=== PATIENT | female | born 1980 | race American Indian/Alaskan Native ===

== ENCOUNTER 2016-07-11 19:23 | Emergency (ER) | payer MEDICAID ==
[2016-07-11] MEDS ORDERED: CATAPRES PO ONE (20:24)
[2016-07-11] MEDS ORDERED: NACL 0.9% 1000 ML 1,000 ML IV ONE (23:26)
[2016-07-11] MEDS ORDERED: TORADOL IV ONE (23:26)
[2016-07-11] MEDS ORDERED: BENADRYL IV ONE (23:26)
[2016-07-11] MEDS ORDERED: REGLAN IV ONE (23:26)
[2016-07-11 23:30] VITALS: BP 142/98
[2016-07-11] MEDS ORDERED: TYLENOL #3 PO ONE (23:30)
--- NOTE | 2016-07-11 23:31 | Emergency Department Report ---
ED Headache HPI - General Chief Complaint: Upper Respiratory Infection Stated Complaint: DOUBLE VISION/DIZZINESS/COUGH Time Seen by Provider: 07/11/16 23:27 Source: patient Exam Limitations: no limitations - History of Present Illness Initial Comments: Patient reports a productive cough with a headache that started 2 weeks ago. She also reports dizziness and double vision that started this morning after coughing. She reports she has a history hypertension, asthma and migraine. She reports this headache similarity as previous headaches. She denies sick contact, head trauma, nausea/vomiting, neck stiffness, fever or closed spaces. Timing/Duration: other (2 weeks) Quality: severe Head Injury Location: global Recent Head Trauma: no recent headache/trauma, chronic headaches Modifying Factors: worse with: exposure to light, movement, other (coughing) Associated Symptoms: denies symptoms. denies: confusion, fatigue, facial pain, fever/chills, flushing, loss of consciousness, nausea/vomiting, nasal congestion , nasal drainage, numbness in legs/feet, rash, seizures, sinus infection, stiff neck, vision changes, weakness Allergies/Adverse Reactions: Allergies aspirin Allergy (Verified 07/11/16 20:15) Anaphylaxis Penicillins Allergy (Verified 07/11/16 20:15) Rash Home Medications: Ambulatory Orders HYDROcodone/APAP 5-325 [[place] 5-325 mg TAB] 1 each PO Q6HR PRN #12 tablet Sulfamethoxazole/Trimethoprim [Bactrim DS TAB] 1 each PO Q12H #14 tablet Benzonatate [Tessalon Perles] 100 mg PO Q8HR #12 capsule 07/11/16 Cetirizine HCl [ZyrTEC] 10 mg PO DAILY #30 capsule 07/11/16 Ibuprofen [Motrin 800 MG tab] 800 mg PO Q8HR PRN #30 tablet 07/11/16 ED Review of Systems ROS: Stated complaint: DOUBLE VISION/DIZZINESS/COUGH Other details as noted in HPI Constitutional: denies: chills, diaphoresis, fever, malaise, weakness Eyes: vision change (photophobia). denies: eye pain, eye discharge ENT: denies: ear pain, throat pain, dental pain, hearing loss, epistaxis, congestion Respiratory: cough (productive). denies: orthopnea, shortness of breath, SOB with exertion, SOB at rest, stridor, wheezing Cardiovascular: denies: chest pain, palpitations, dyspnea on exertion, orthopnea , edema, syncope, paroxysmal nocturnal dyspnea Gastrointestinal: denies: abdominal pain, nausea, vomiting, diarrhea, constipation Musculoskeletal: denies: back pain, joint swelling, arthralgia, myalgia Skin: denies: rash, lesions, change in color, change in hair/nails, pruritus Neurological: headache (global). denies: weakness, numbness, paresthesias, confusion, abnormal gait, vertigo Psychiatric: denies: anxiety, depression Hematological/Lymphatic: denies: easy bleeding, easy bruising, swollen glands ED Past Medical Hx - Past Medical History Hx Hypertension: Yes Hx Asthma: Yes - Surgical History Hx Cholecystectomy: Yes - Social History Smoking Status: Never Smoker - Medications Home Medications: Home Medications Medication Instructions Recorded Confirmed Last Taken Type HYDROcodone/APAP 5-325 [[place] 1 each PO Q6HR PRN #12 tablet 03/20/15 11/25/15 Unknown Rx 5-325 mg TAB] Sulfamethoxazole/Trimethoprim 1 each PO Q12H #14 tablet 03/20/15 11/25/15 Unknown Rx [Bactrim DS TAB] Benzonatate [Tessalon Perles] 100 mg PO Q8HR #12 capsule 07/11/16 Unknown Rx Cetirizine HCl [ZyrTEC] 10 mg PO DAILY #30 capsule 07/11/16 Unknown Rx Ibuprofen [Motrin 800 MG tab] 800 mg PO Q8HR PRN #30 tablet 07/11/16 Unknown Rx ED Physical Exam - General Limitations: No Limitations General appearance: alert, in no apparent distress - Head Head exam: Present: atraumatic, normocephalic - Eye Eye exam: Present: normal appearance, PERRL, EOMI. Absent: nystagmus Pupils: Present: normal accommodation. Absent: irregular, unequal - ENT ENT exam: Present: normal orophraynx, mucous membranes moist, TM's normal bilaterally, normal external ear exam, other (swelling to bilateral turbinates) . Absent: mucous membranes dry - Neck Neck exam: Present: normal inspection, full ROM. Absent: tenderness, meningismus, lymphadenopathy, thyromegaly - Respiratory Respiratory exam: Present: normal lung sounds bilaterally. Absent: respiratory distress, wheezes, rales, rhonchi, stridor, chest wall tenderness, accessory muscle use, decreased breath sounds, prolonged expiratory - Cardiovascular Cardiovascular Exam: Present: regular rate, normal rhythm, normal heart sounds. Absent: systolic murmur, diastolic murmur, rubs, gallop, clicks, JVD, S3, S4 - GI/Abdominal GI/Abdominal exam: Present: soft, normal bowel sounds. Absent: distended, tenderness, guarding, rebound, rigid - Extremities Exam Extremities exam: Present: normal inspection, full ROM, normal capillary refill. Absent: tenderness, pedal edema, joint swelling, calf tenderness - Back Exam Back exam: Present: normal inspection, full ROM. Absent: CVA tenderness (R), CVA tenderness (L) - Neurological Exam Neurological exam: Present: alert, oriented X3, CN II-XII intact, normal gait, reflexes normal, other (no focal neuro deficits noted). Absent: motor sensory deficit - Psychiatric Psychiatric exam: Present: normal affect, normal mood. Absent: depressed, agitated - Skin Skin exam: Present: warm, dry, intact, normal color. Absent: rash ED Course Vital Signs 07/11/16 07/11/16 07/11/16 20:15 20:28 23:29 Temperature 99.1 F Pulse Rate 73 73 77 Respiratory 18 19 Rate Blood Pressure 156/131 Blood Pressure 156/131 142/98 [Left] O2 Sat by Pulse 100 98 Oximetry - Reevaluation(s) Reevaluation #1: 07/11/16 23:31 antihypertensive medication, pain medication with codeine, antihistamine, Intravenous fluids and Reglan Reevaluation #2: 07/11/16 23:37 radiology studies ordered ED Medical Decision Making - Lab Data Vital Signs 07/11/16 07/11/16 07/11/16 20:15 20:28 23:29 Temperature 99.1 F Pulse Rate 73 73 77 Respiratory 18 19 Rate Blood Pressure 156/131 Blood Pressure 156/131 142/98 [Left] O2 Sat by Pulse 100 98 Oximetry - Radiology Data Radiology results: image reviewed PROCEDURE: XR CHEST ROUTINE TWO VIEW PA AND LATERAL TECHNIQUE: PA and lateral chest radiographs were obtained. CPT 28453 A total of 3 films obtained which are 1 PA view and 2 lateral views HISTORY: productive cough COMPARISON: No prior studies are available for comparison. FINDINGS: Heart: Normal. Mediastinum/Vessels: Normal. Lungs/Pleural space: Normal. Bony thorax: No acute osseous abnormality. Other: IMPRESSION: Negative PA and lateral chest with no plain film evidence of acute finding.. - Medical Decision Making During the course of ED, antihypertensive medication, antihistamein, intravenous fluids, antiemetic, analgesic and radiology studies were ordered. The imaging study revealed Negative PA and lateral chest with no plain film evidence of acute finding. She reports symptomatic relief from medications given in the ED. She was sent home with prescriptions for Ibuprofen, Zyrtec and Tesalon Perles, instructed to follow up with the selective referral given at discharge, she verbalized understanding - Differential Diagnosis Migraine Headache, Upper Respiratory Infection Critical care attestation.: If time is entered above; I have spent that time in minutes in the direct care of this critically ill patient, excluding procedure time. ED Disposition Clinical Impression: Migraine headache Qualifiers: Migraine type: without aura Status migrainosus presence: without status migrainosus Intractability: not intractable Qualified Code(s): G43.009 - Migraine without aura, not intractable, without status migrainosus Upper respiratory infection Qualifiers: URI type: unspecified URI Qualified Code(s): J06.9 - Acute upper respiratory infection, unspecified Disposition: DISCHARGED TO HOME OR SELFCARE Is pt being admited?: No Does the pt Need Aspirin: No Condition: Stable Instructions: Migraine Headache (ED), Upper Respiratory Infection (ED) Additional Instructions: Take medication as directed. Follow up with your primary care doctor. Return back to the ED for worsening symptoms or concerns Prescriptions: Ibuprofen [Motrin 800 MG tab] 800 mg PO Q8HR PRN #30 tablet PRN Reason: Pain Benzonatate [Tessalon Perles] 100 mg PO Q8HR #12 capsule Cetirizine HCl [ZyrTEC] 10 mg PO DAILY #30 capsule Referrals: PRIMARY CARE, [Primary Care Provider] - 3-5 Days [facility] [Outside] - 3-5 Days Forms: Work/School Release Form(ED)
--- NOTE | 2016-07-12 00:41 | XRay Report ---
FINAL REPORT PROCEDURE: XR CHEST ROUTINE TWO VIEW PA AND LATERAL TECHNIQUE: PA and lateral chest radiographs were obtained. CPT 85578 A total of 3 films obtained which are 1 PA view and 2 lateral views HISTORY: productive cough COMPARISON: No prior studies are available for comparison. FINDINGS: Heart: Normal. Mediastinum/Vessels: Normal. Lungs/Pleural space: Normal. Bony thorax: No acute osseous abnormality. Other: IMPRESSION: Negative PA and lateral chest with no plain film evidence of acute finding..
== END 2016-07-12 01:37 | disposition home or self-care (01) ==
LOC: ED 19:23
DX: G43.909 Migraine, unspecified, not intractable, without status migrainosus (principal); J06.9 Acute upper respiratory infection, unspecified; I10 Essential (primary) hypertension; J45.909 Unspecified asthma, uncomplicated; Z88.6 Allergy status to analgesic agent; Z88.0 Allergy status to penicillin
CPT/HCPCS: 71020; 96361; 96374; 96375; 99283; J1200; J2765; J7030

== ENCOUNTER 2017-07-03 12:44 | Emergency (ER) | payer MEDICAID ==
[2017-07-03] MEDS ORDERED: DUONEB *Not for PRN Use IH ONE (13:00)
[2017-07-03 13:45] LABS: Bilirubin,Urine NEG (Negative); Blood,Urine NEG (Negative); Color,Urine Amber (Yellow); Mucus,Urine FEW /HPF; Nitrite,Urine NEG (Negative); Protein,Urine <15 mg/dL mg/dL (Negative); Urobilinogen,Urine < 2.0 mg/dL (<2.0); WBC,Urine < 1.0 /HPF (0.0-6.0)
[2017-07-03 13:55] LABS: HCG Qualitative,Urine Negative (Negative)
[2017-07-03 15:21] LABS: BUN/Creatinine Ratio 22; Blood Urea Nitrogen 11 mg/dL (7-17); Calcium 8.6 mg/dL (8.4-10.2); Hemolysis Index 5
[2017-07-03 15:22] LABS: Hematocrit 38.4 % (30.3-42.9); Hemoglobin 12.4 gm/dl (10.1-14.3); Mean Corpuscular HGB Conc 32 % (30-34); Mean Corpuscular Hemoglobin 27 pg (28-32); Mean Corpuscular Volume 82 fl (79-97); Platelet Count 256 K/mm3 (140-440); Red Cell Distribution Width 15.7 % (13.2-15.2)
--- NOTE | 2017-07-03 15:43 | XRay Report ---
ROUTINE CHEST, TWO VIEWS: HISTORY: Short of breath. The trachea, heart, mediastinal contour, lung andrade and bony thorax are unremarkable. IMPRESSION: Unremarkable chest x-ray.
[2017-07-03] MEDS ORDERED: NORCO 5/325 PO ONE (17:09)
[2017-07-03 17:11] VITALS: BP 139/91
--- NOTE | 2017-07-03 18:41 | Emergency Department Report ---
Minor Respiratory - HPI Chief Complaint: Upper Respiratory Infection Stated Complaint: CHEST PAIN, HEADACHE, COUGH Time Seen by Provider: 07/03/17 16:54 Duration: patient has been ill for approximately 3 weeks Pain Location: Chest (pleuritic chest pain as well as chest tightness) Severity: moderate Minor Respiratory: Yes Cough, Yes Chest Pain, Yes Shortness of Breath, No Rhinorrhea, No Sore Throat, No Able to Tolerate Fluids, No Ear Pain, No Sick Contacts, No Hemoptysis, No Fever Other History: Patient is a 36-year-old female who is presenting with chest discomfort as well as a cough. Patient states the cough is productive of clear sputum. Patient has been on amoxicillin for 10 days with no improvement of her symptoms. Patient went back to see her primary physician today and was sent here for evaluation. She denies fever nausea vomiting diarrhea body aches. ED Review of Systems ROS: Stated complaint: CHEST PAIN, HEADACHE, COUGH Other details as noted in HPI Comment: All other systems reviewed and negative ED Past Medical Hx - Past Medical History Hx Hypertension: Yes Hx Asthma: Yes - Surgical History Hx Cholecystectomy: Yes - Social History Smoking Status: Never Smoker Substance Use Type: None - Medications Home Medications: Home Medications Medication Instructions Recorded Confirmed Last Taken Type HYDROcodone/APAP 5-325 [[place] 1 each PO Q6HR PRN #12 tablet 03/20/15 11/25/15 Unknown Rx 5-325 mg TAB] Sulfamethoxazole/Trimethoprim 1 each PO Q12H #14 tablet 03/20/15 11/25/15 Unknown Rx [Bactrim DS TAB] Benzonatate [Tessalon Perles] 100 mg PO Q8HR #12 capsule 07/11/16 Unknown Rx Cetirizine HCl [ZyrTEC] 10 mg PO DAILY #30 capsule 07/11/16 Unknown Rx Ibuprofen [Motrin 800 MG tab] 800 mg PO Q8HR PRN #30 tablet 07/11/16 Unknown Rx Azithromycin [Zithromax Z-LOUISA] 250 mg PO DAILY #6 tablet 07/03/17 Unknown Rx HYDROcodone/APAP 5-325 [[place] 1 each PO Q4HR PRN #12 tablet 07/03/17 Unknown Rx 5/325] predniSONE [Deltasone] 20 mg PO QDAY #5 tab 07/03/17 Unknown Rx Minor Respiratory Exam - Exam General: Vital signs noted. No distress. Alert and acting appropriately. HEENT: Yes Moist Mucous Membranes, No Pharyngeal Erythema, No Pharyngeal Exudates, No Rhinorrhea, No Conjuctival Injection, No Frontal Tenderness, No Maxillary Tenderness Ear: Neither TM Bulge, Neither TM Erythema, Neither EAC Pain, Neither EAC Discharge Neck: Yes Supple, No Adenopathy Lungs: Yes Good Air Exchange, No Wheezes, No Ronchi, No Stridor, No Cough, No Labored Respirations, No Retractions, No Use of Accessory Muscles, No Other Abnormal Lung Sounds Heart: Yes Regular, No Murmur Abdomen: Yes Normal Bowel Sounds, No Tenderness, No Peritoneal Signs Skin: No Rash, No Edema Neurologic: Alert and oriented, no deficits. Musculoskeletal: Unremarkable. ED Course Vital Signs 07/03/17 07/03/17 12:56 17:10 Temperature 99.1 F Pulse Rate 84 72 Respiratory 18 16 Rate Blood Pressure 158/88 Blood Pressure 139/91 [Left] O2 Sat by Pulse 98 96 Oximetry ED Medical Decision Making - Lab Data Result diagrams: 07/03/17 14:52 07/03/17 14:52 Lab Results 07/03/17 07/03/17 07/03/17 Range/Units 13:30 14:52 14:52 WBC 9.9 (4.5-11.0) K/mm3 RBC 4.70 (3.65-5.03) M/mm3 Hgb 12.4 (10.1-14.3) gm/dl Hct 38.4 (30.3-42.9) % MCV 82 (79-97) fl MCH 27 L (28-32) pg MCHC 32 (30-34) % RDW 15.7 H (13.2-15.2) % Plt Count 256 (140-440) K/mm3 D-Dimer (0-234) ng/mlDDU Potassium 3.9 (3.6-5.0) mmol/L Chloride 99.4 (98-107) mmol/L Carbon Dioxide 24 (22-30) mmol/L Anion Gap 19 mmol/L BUN 11 (7-17) mg/dL Creatinine 0.5 L (0.7-1.2) mg/dL Estimated GFR > 60 ml/min BUN/Creatinine Ratio 22 % Glucose 104 H (65-100) mg/dL Calcium 8.6 (8.4-10.2) mg/dL Troponin T < 0.010 (0.00-0.029) ng/mL Urine Color Marcela (Yellow) Urine Turbidity Slightly-cloudy (Clear) Urine pH 7.0 (5.0-7.0) Ur Specific [place] 1.026 (1.003-1.030) Urine Protein <15 mg/dl (Negative) mg/dL Urine Glucose (UA) Neg (Negative) mg/dL Urine Ketones Neg (Negative) mg/dL Urine Blood Neg (Negative) Urine Nitrite Neg (Negative) Urine Bilirubin Neg (Negative) Urine Urobilinogen < 2.0 (<2.0) mg/dL Ur Leukocyte Esterase Neg (Negative) Urine WBC (Auto) < 1.0 (0.0-6.0) /HPF Urine RBC (Auto) 1.0 (0.0-6.0) /HPF U Epithel Cells (Auto) 2.0 (0-13.0) /HPF Urine Mucus Few /HPF Urine HCG, Qual Negative (Negative) 07/03/17 Range/Units 17:30 WBC (4.5-11.0) K/mm3 RBC (3.65-5.03) M/mm3 Hgb (10.1-14.3) gm/dl Hct (30.3-42.9) % MCV (79-97) fl MCH (28-32) pg MCHC (30-34) % RDW (13.2-15.2) % Plt Count (140-440) K/mm3 D-Dimer < 135 (0-234) ng/mlDDU Potassium (3.6-5.0) mmol/L Chloride (98-107) mmol/L Carbon Dioxide (22-30) mmol/L Anion Gap mmol/L BUN (7-17) mg/dL Creatinine (0.7-1.2) mg/dL Estimated GFR ml/min BUN/Creatinine Ratio % Glucose (65-100) mg/dL Calcium (8.4-10.2) mg/dL Troponin T (0.00-0.029) ng/mL Urine Color (Yellow) Urine Turbidity (Clear) Urine pH (5.0-7.0) Ur Specific [place] (1.003-1.030) Urine Protein (Negative) mg/dL Urine Glucose (UA) (Negative) mg/dL Urine Ketones (Negative) mg/dL Urine Blood (Negative) Urine Nitrite (Negative) Urine Bilirubin (Negative) Urine Urobilinogen (<2.0) mg/dL Ur Leukocyte Esterase (Negative) Urine WBC (Auto) (0.0-6.0) /HPF Urine RBC (Auto) (0.0-6.0) /HPF U Epithel Cells (Auto) (0-13.0) /HPF Urine Mucus /HPF Urine HCG, Qual (Negative) - EKG Data -: EKG Interpreted by Me EKG shows normal: sinus rhythm, axis, intervals, QRS complexes, ST-T waves Rate: normal - EKG Data Interpretation: normal EKG - Radiology Data Radiology results: report reviewed Acute process - Medical Decision Making Patient is a 36-year-old female presented with cough, congestion. Because of the duration of the patient's symptoms d-dimer was added to her lab work to assure that a PE had not been missed. D-dimer was negative patient be discharged home with pain meds as well as a second course of antibiotics. I have elected to place patient on azithromycin. Critical care attestation.: If time is entered above; I have spent that time in minutes in the direct care of this critically ill patient, excluding procedure time. ED Disposition Clinical Impression: Costochondral chest pain Acute bronchitis Qualifiers: Bronchitis organism: unspecified organism Qualified Code(s): J20.9 - Acute bronchitis, unspecified Disposition: DC-01 TO HOME OR SELFCARE Is pt being admited?: No Does the pt Need Aspirin: No Condition: Fair Instructions: Acute Bronchitis (ED), Chest Pain (ED), Costochondritis (ED) Prescriptions: Azithromycin [Zithromax Z-LOUISA] 250 mg PO DAILY #6 tablet HYDROcodone/APAP 5-325 [[place] 5/325] 1 each PO Q4HR PRN #12 tablet PRN Reason: Pain predniSONE [Deltasone] 20 mg PO QDAY #5 tab
== END 2017-07-03 19:00 | disposition home or self-care (01) ==
LOC: ED 12:44
DX: J20.9 Acute bronchitis, unspecified (principal); I10 Essential (primary) hypertension; J45.909 Unspecified asthma, uncomplicated; Z90.49 Acquired absence of other specified parts of digestive tract; Z88.0 Allergy status to penicillin; Z88.6 Allergy status to analgesic agent
CPT/HCPCS: 36415; 71046; 80048; 81001; 81025; 84484; 85027; 85379; 93005; 93010; 94640

== ENCOUNTER 2018-08-16 20:20 | Emergency (ER) | payer MEDICAID ==
[2018-08-16] MEDS ORDERED: DUONEB *Not for PRN Use IH ONE ×2 (20:34→21:13)
[2018-08-16] MEDS ORDERED: TYLENOL PO ONE (20:37)
[2018-08-16] MEDS ORDERED: TYLENOL ONE (20:41)
--- NOTE | 2018-08-16 21:08 | XRay Report ---
FINAL REPORT EXAM: XR CHEST ROUTINE 2V HISTORY: cough and wheezing TECHNIQUE: 2 views of the chest. PRIORS: 07/11/2016 FINDINGS: The cardiomediastinal silhouette appears normal. The lungs are clear. The bones and soft tissues are unremarkable. IMPRESSION: No evidence of acute cardiopulmonary disease
--- NOTE | 2018-08-16 23:30 | Emergency Department Report ---
- General Chief Complaint: Upper Respiratory Infection Stated Complaint: CHEST PAIN/SOB/COUGH Time Seen by Provider: 08/16/18 23:25 Source: patient Mode of arrival: Ambulatory Limitations: No Limitations - History of Present Illness Initial Comments: 37-year-old -[place] female presents to the emergency room stating she has chest pain with cough and shortness of breathing. Patient reports that she saw her primary care provider yesterday and was diagnosed with bronchitis and placed on pro-air and amoxicillin. Patient reports that she is allergic to amoxicillin and feels that she is not getting any better. Patient received a treatment in triage and reports that she feels much better after having the treatment. Patient denies any fever or chills or nausea no vomiting. MD Complaint: cough Improves With: other (nebulizer) Associated Symptoms: cough, shortness of breath - Related Data Previous Rx's Medication Instructions Recorded Last Taken Type HYDROcodone/APAP 5-325 [[place] 1 each PO Q6HR PRN #12 tablet 03/20/15 Unknown Rx 5-325 mg TAB] Sulfamethoxazole/Trimethoprim 1 each PO Q12H #14 tablet 03/20/15 Unknown Rx [Bactrim DS TAB] Benzonatate [Tessalon Perles] 100 mg PO Q8HR #12 capsule 07/11/16 Unknown Rx Cetirizine HCl [ZyrTEC] 10 mg PO DAILY #30 capsule 07/11/16 Unknown Rx Ibuprofen [Motrin 800 MG tab] 800 mg PO Q8HR PRN #30 tablet 07/11/16 Unknown Rx Azithromycin [Zithromax Z-LOUISA] 250 mg PO DAILY #6 tablet 07/03/17 Unknown Rx HYDROcodone/APAP 5-325 [[place] 1 each PO Q4HR PRN #12 tablet 07/03/17 Unknown Rx 5/325] Sulfamethoxazole/Trimethoprim 1 each PO BID #20 tablet 08/16/18 Unknown Rx [Bactrim DS TAB] predniSONE [Deltasone] 20 mg PO QDAY #5 tab 08/16/18 Unknown Rx Allergies Allergy/AdvReac Type Severity Reaction Status Date / Time aspirin Allergy Anaphylaxis Verified 07/11/16 20:15 Penicillins Allergy Rash Verified 07/11/16 20:15 ED Review of Systems ROS: Stated complaint: CHEST PAIN/SOB/COUGH Other details as noted in HPI Comment: All other systems reviewed and negative ENT: denies: congestion Respiratory: cough, shortness of breath. denies: wheezing ED Past Medical Hx - Past Medical History Hx Hypertension: Yes Hx Asthma: Yes - Surgical History Hx Cholecystectomy: Yes - Social History Smoking Status: Never Smoker Substance Use Type: None - Medications Home Medications: Home Medications Medication Instructions Recorded Confirmed Last Taken Type HYDROcodone/APAP 5-325 [[place] 1 each PO Q6HR PRN #12 tablet 03/20/15 11/25/15 Unknown Rx 5-325 mg TAB] Sulfamethoxazole/Trimethoprim 1 each PO Q12H #14 tablet 03/20/15 11/25/15 Unknown Rx [Bactrim DS TAB] Benzonatate [Tessalon Perles] 100 mg PO Q8HR #12 capsule 07/11/16 Unknown Rx Cetirizine HCl [ZyrTEC] 10 mg PO DAILY #30 capsule 07/11/16 Unknown Rx Ibuprofen [Motrin 800 MG tab] 800 mg PO Q8HR PRN #30 tablet 07/11/16 Unknown Rx Azithromycin [Zithromax Z-LOUISA] 250 mg PO DAILY #6 tablet 07/03/17 Unknown Rx HYDROcodone/APAP 5-325 [[place] 1 each PO Q4HR PRN #12 tablet 07/03/17 Unknown Rx 5/325] Sulfamethoxazole/Trimethoprim 1 each PO BID #20 tablet 08/16/18 Unknown Rx [Bactrim DS TAB] predniSONE [Deltasone] 20 mg PO QDAY #5 tab 08/16/18 Unknown Rx ED Physical Exam - General Limitations: No Limitations General appearance: alert, in no apparent distress - Head Head exam: Present: atraumatic, normocephalic - Eye Eye exam: Present: normal appearance, EOMI - ENT ENT exam: Present: mucous membranes moist - Neck Neck exam: Present: normal inspection - Respiratory Respiratory exam: Present: normal lung sounds bilaterally. Absent: respiratory distress - Cardiovascular Cardiovascular Exam: Present: regular rate, normal rhythm. Absent: systolic murmur, diastolic murmur, rubs, gallop - GI/Abdominal GI/Abdominal exam: Present: soft, normal bowel sounds - Extremities Exam Extremities exam: Present: normal inspection - Neurological Exam Neurological exam: Present: alert, oriented X3 - Psychiatric Psychiatric exam: Present: normal affect, normal mood - Skin Skin exam: Present: warm, dry, intact, normal color. Absent: rash ED Course Vital Signs 08/16/18 08/16/18 08/16/18 20:28 20:31 21:09 Temperature 98.7 F 98.7 F Pulse Rate 82 78 Pulse Rate [ 65 Anterior Bilateral Throughout] Respiratory 18 18 Rate Respiratory 26 H Rate [Anterior Bilateral Throughout] Blood Pressure 201/82 201/82 O2 Sat by Pulse 100 100 Oximetry ED Medical Decision Making - Radiology Data Radiology results: report reviewed Patient: SRIDEVI GARNER MR#: [id number] : 1980 Acct:[id number] Age/Sex: 37 / F ADM Date: 08/16/18 Loc: ED Attending Dr: Ordering Physician: DEANGELO IRAHETA MD Date of Service: 08/16/18 Procedure(s): XR chest routine 2V Accession Number(s): [id number] cc: ED MD MYRTLE Fluoro Time In Minutes: FINAL REPORT EXAM: XR CHEST ROUTINE 2V HISTORY: cough and wheezing TECHNIQUE: 2 views of the chest. PRIORS: 07/11/2016 FINDINGS: The cardiomediastinal silhouette appears normal. The lungs are clear. The bones and soft tissues are unremarkable. IMPRESSION: No evidence of acute cardiopulmonary disease Transcribed By: ML Dictated By: MARIELA CARRILLO MD Electronically Authenticated By: MARIELA CARRILLO MD Signed Date/Time: 08/16/182107 DD/ 05 TD/TT: 08/16/182105 - Medical Decision Making Patient has been evaluated by this provider fast track. Patient was given a breathing treatment in triage reports that she felt much better. Patient was given prescription for steroids and Bactrim and to follow back up with her primary care provider if symptoms persist or gets worse Critical care attestation.: If time is entered above; I have spent that time in minutes in the direct care of this critically ill patient, excluding procedure time. ED Disposition Clinical Impression: Bronchitis Disposition: DC-01 TO HOME OR SELFCARE Is pt being admited?: No Does the pt Need Aspirin: No Condition: Stable Instructions: Acute Bronchitis (ED) Additional Instructions: Take medication as prescribed. Follow back up with your primary care provider if his symptoms persist or gets worse. Prescriptions: predniSONE [Deltasone] 20 mg PO QDAY #5 tab Sulfamethoxazole/Trimethoprim [Bactrim DS TAB] 1 each PO BID #20 tablet Referrals: PRIMARY CARE, [Primary Care Provider] - 3-5 Days
[2018-08-17 00:35] VITALS: BP 149/84
== END 2018-08-17 00:37 | disposition home or self-care (01) ==
LOC: ED 20:20
DX: J40 Bronchitis, not specified as acute or chronic (principal); I10 Essential (primary) hypertension
CPT/HCPCS: 71046; 94640